=== PATIENT | female | born 1980 | race Two or more races ===

== ENCOUNTER 2018-11-24 22:38 | Inpatient (IN) | payer OTHER ==
[~2018-11-24] VITALS: Ht 165.1 cm; Wt 67.6 kg
--- NOTE | 2018-11-24 22:50 | NUR ---
PT MEDICATED FOR FEVER IN TRIAGE
--- NOTE | 2018-11-24 22:54 | NUR ---
ua sent to lab
[2018-11-24] MEDS ORDERED: ACETAMINOPHEN 500 MG TABLET PO ONE (23:00)
[2018-11-24 23:23] LABS: MICROSCOPIC AUTO
[2018-11-24 23:36] LABS: CULTURE INDICATED? YES
[2018-11-25 00:30] LABS: MEAN CORPUSCULAR HEMOGLOBIN 31.4 pg (27.0-34.8); MEAN CORPUSCULAR HGB CONC 34.4 g/dL (32.4-35.8); MEAN CORPUSCULAR VOLUME 91.4 fL (80-100); MEAN PLATELET VOLUME 8.8 fL (7.4-10.4); PLATELET COUNT 173 x10^3/uL (130-400); RED BLOOD COUNT 4.39 x10^6/uL (3.82-5.3); RED CELL DISTRIBUTION WIDTH 12.6 % (9.6-15.2)
[2018-11-25 00:37] LABS: ALBUMIN 3.7 g/dL (3.4-5.0); ANION GAP 9 mmol/L (5-15); CALCIUM 8.6 mg/dL (8.5-10.1); CHLORIDE 105 mmol/L (98-107)
[2018-11-25 00:41] LABS: ALANINE AMINOTRANSFERASE 22 U/L (12-78); ALKALINE PHOSPHATASE 81 U/L (45-117); BILIRUBIN,TOTAL 0.9 mg/dL (0.2-1.0); CREATININE 0.79 mg/dL (0.55-1.02); TOTAL PROTEIN 7.9 g/dL (6.4-8.2)
[2018-11-25] MEDS ORDERED: CEFTRIAXONE PMX 1GM/50ML 50 ML ONE (00:52)
[2018-11-25] MEDS ORDERED: MORPHINE SULFATE 4 MG/ML, 1ML ONE (00:52)
[2018-11-25] MEDS ORDERED: ONDANSETRON 2MG/ML, 2ML ONE (00:52)
[2018-11-25] MEDS ORDERED: KETOROLAC 30 MG/1 ML ONE (00:52)
[2018-11-25 00:59] LABS: MD YES
[2018-11-25] MEDS ORDERED: SODIUM CHLORIDE FLUSH 10ML SYR IVF ONE (01:00)
[2018-11-25] MEDS ORDERED: ONDANSETRON 2MG/ML, 2ML IVPush ONE (01:00)
[2018-11-25] MEDS ORDERED: ONDANSETRON 2MG/ML, 2ML IVPush PRN (01:00)
[2018-11-25] MEDS ORDERED: SODIUM CHLORIDE 0.9% 1,000ML IVBOLUS ONE (01:00)
[2018-11-25] MEDS ORDERED: HYDROcodone/APAP 5/325 TABLET PO PRN (01:00)
[2018-11-25] MEDS ORDERED: MORPHINE SULFATE 4 MG/ML, 1ML IVPush PRN (01:00)
[2018-11-25] MEDS ORDERED: CEFTRIAXONE PMX 1GM/50ML 50 ML IVPB ONE (01:00)
[2018-11-25] MEDS ORDERED: morphine SULFATE 10 MG/ML, 1ML IVPush PRN (01:00)
[2018-11-25] MEDS ORDERED: KETOROLAC 30 MG/1 ML IVPush ONE (01:00)
[2018-11-25 01:02] LABS: <RBC MORPHOLOGY> NORMAL; BAND#(MANUAL) 1.81 x10^3/uL; BANDS%(MANUAL) 12 % (0-7); LYMPH#(MANUAL) 0.76 x10^3/uL (1-3.4); LYMPHS% (MANUAL) 5 % (22-44); MONOS#(MANUAL) 1.21 x10^3/uL (0.3-2.7); MONOS% (MANUAL) 8 % (2-9); SEG#(MANUAL) 11.33 x10^3/uL (1.8-6.8); SEGS% (MANUAL) 75 % (42-75)
[2018-11-25 01:03] LABS: <PLATELET ESTIMATE> ADEQUATE; <PLT MORPHOLOGY> NORMAL PLT MORPH
--- NOTE | 2018-11-25 01:03 | NUR ---
BC X2 DRAWN BY LAB. ABX AND IVF NOW INFUSING. [facility] AT BEDSIDE. PT KINDLY DECLINING MORPHINE AND ZOFRAN AT THIS TIME. PT AGREED TO TORADOL.
[2018-11-25] MEDS ORDERED: SODIUM CHLORIDE 0.9%, 500ML IVBOLUS ONE (01:30)
[2018-11-25 01:54] VITALS: BP 96/62
[2018-11-25 01:56] LABS: T4 (THYROXINE) 5.4 mcg/dL (4.8-13.9)
[2018-11-25 02:05] LABS: THYROID STIMULATING HORMONE 0.422 mIU/L (0.358-3.740)
[2018-11-25 02:09] LABS: HEMOGLOBIN A1C 5.6 % (4.2-6.3)
[2018-11-25] MEDS: ACETAMINOPHEN 325 MG TABLET PO PRN ×4 (02:09→21:15)
[2018-11-25] MEDS: SODIUM CHLORIDE 0.9% 1,000 ML IV SCH ×3 (02:09→18:28)
[2018-11-25 02:26] VITALS: BP 96/62
[2018-11-25 02:39] LABS: HCG UR SG 1.017 (1.003-1.030)
[2018-11-25 07:11] VITALS: BP 94/61
[2018-11-25 12:54] VITALS: BP 101/61
[2018-11-25 21:22] VITALS: BP 121/60
[2018-11-25 23:12] VITALS: BP 101/66
[2018-11-26] MEDS: CEFTRIAXONE PMX 1GM/50ML 50 ML IV SCH (01:04)
[2018-11-26 01:05] VITALS: BP 104/65
[2018-11-26] MEDS: SODIUM CHLORIDE 0.9% 1,000 ML IV SCH (02:59)
[2018-11-26 05:44] LABS: BASOPHILS # (AUTO) 0.03 x10^3/uL (0-0.1); BASOPHILS % (AUTO) 0 % (0-1); EOSINOPHILS # (AUTO) 0.03 x10^3/uL (0-0.4); EOSINOPHILS % (AUTO) 0 % (1-7); LYMPHOCYTES # (AUTO) 1.42 x10^3/uL (1-3.4); LYMPHOCYTES % (AUTO) 13 % (22-44); MD NO; MEAN CORPUSCULAR HEMOGLOBIN 31.1 pg (27.0-34.8); MEAN CORPUSCULAR HGB CONC 33.9 g/dL (32.4-35.8); MEAN CORPUSCULAR VOLUME 91.7 fL (80-100); MEAN PLATELET VOLUME 9.4 fL (7.4-10.4); MONOCYTES # (AUTO) 1.17 x10^3/uL (0.2-0.8); MONOCYTES % (AUTO) 10 % (2-9); NEUTROPHILS # (AUTO) 8.64 x10^3/uL (1.8-6.8); NEUTROPHILS % (AUTO) 77 % (42-75); PLATELET COUNT 136 x10^3/uL (130-400); RED BLOOD COUNT 3.98 x10^6/uL (3.82-5.3); RED CELL DISTRIBUTION WIDTH 12.8 % (9.6-15.2)
[2018-11-26 05:45] LABS: ANION GAP 7 mmol/L (5-15); CALCIUM 8.6 mg/dL (8.5-10.1)
[2018-11-26 05:46] LABS: CREATININE 0.46 mg/dL (0.55-1.02)
[2018-11-26 06:07] LABS: CHLORIDE 115 mmol/L (98-107)
[2018-11-26 07:25] VITALS: BP 107/71
[2018-11-26] MEDS: ACETAMINOPHEN 325 MG TABLET PO PRN (07:57)
[2018-11-26] MEDS ORDERED: METOCLOPRAMIDE 5 MG/ML, 2ML IVPush PRN (10:30)
[2018-11-26 14:49] VITALS: BP 119/79
[2018-11-26 19:41] VITALS: BP 112/75
[2018-11-27] MEDS: CEFTRIAXONE PMX 1GM/50ML 50 ML IV SCH (00:50)
[2018-11-27 00:57] VITALS: BP 125/79
[2018-11-27 08:18] VITALS: BP 107/70
[2018-11-27] MEDS ORDERED: ACET325T14 PO (09:38)
[2018-11-27] MEDS ORDERED: SULF1TAB24 PO (09:38)
== END 2018-11-27 12:30 | disposition home or self-care (01) | DRG 872 ==
LOC: ED 11-25 00:56 → 3NE 11-25 02:00 → DCLOUNGE 11-27 12:15
PROVIDERS: ADMIT Internal Medicine; ATTEND Internal Medicine
DX: A41.9 Sepsis, unspecified organism (principal); N12 Tubulo-interstitial nephritis, not specified as acute or chronic; N30.90 Cystitis, unspecified without hematuria; R73.9 Hyperglycemia, unspecified; G43.909 Migraine, unspecified, not intractable, without status migrainosus; B96.20 Unspecified Escherichia coli [E. coli] as the cause of diseases classified elsewhere
CPT/HCPCS: 36415; 80048; 80053; 81001; 81025; 83036; 83605; 84145; 84436; 84443; 85025; 87040; 87077; 87086; 87186; 96374; G0378; J0696; J1885; J7030; J7040